=== PATIENT | male | born 1975 | race American Indian/Alaskan Native ===

== ENCOUNTER 2017-03-14 11:27 | Emergency (ER) | payer OTHER ==
[2017-03-14 11:28] VITALS: BMI 29.4
--- NOTE | 2017-03-14 12:53 | C.PDOC ---
History Of Present Illness 41-year-old male, presents to the emergency department with complaints of new onset right flank pain since yesterday. Pain was intermittent, and is now radiating too right-groin. He is currently asymptomatic. No prior Hx of kidney stone, PSH. Denies any other associated symptoms. Patient is /p Motrin dose 600mg, prior to arrival. NEW ONSET R FLANK PAIN SINCE YEST. INTERMIT NOW RADIATION R GROIN. CURRENTLY ASYMPT. NO PRIOR HO KIDNEY STONE, PSH. DENIES OTHER ASSOC SX. 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 Time Seen by Provider: 03/14/17 12:23 Chief Complaint (Nursing): Abdominal Pain History Per: Patient History/Exam Limitations: no limitations Onset/Duration Of Symptoms: Days Current Symptoms Are (Timing): Still Present Severity: Moderate Past Medical History Reviewed: Historical Data, Nursing Documentation, Vital Signs Vital Signs: Last Vital Signs Temp 98.1 F 03/14/17 11:44 Pulse 61 03/14/17 11:44 Resp 18 03/14/17 11:44 BP 122/69 03/14/17 11:44 Pulse Ox 96 03/14/17 13:58 - Medical History PMH: Arthritis, Rheumatoid Arthritis Family History: States: Unknown Family Hx - Social History Hx Alcohol Use: Yes Hx Substance Use: No - Immunization History Hx Tetanus Toxoid Vaccination: No Hx Influenza Vaccination: Yes Hx Pneumococcal Vaccination: No Review Of Systems Except As Marked, All Systems Reviewed And Found Negative. Constitutional: Negative for: Fever, Chills Gastrointestinal: Negative for: Nausea, Vomiting, Abdominal Pain, Diarrhea, Constipation Musculoskeletal: Positive for: Back Pain Skin: Negative for: Rash Neurological: Negative for: Weakness, Numbness, Headache, Dizziness Physical Exam - Physical Exam Appears: Non-toxic, No Acute Distress Skin: Warm, Dry, No Rash Head: Atraumatic, Normacephalic Eye(s): bilateral: Normal Inspection, PERRL Nose: Normal Oral Mucosa: Moist Lips: Normal Appearing Neck: Normal ROM Cardiovascular: Rhythm Regular Respiratory: Normal Breath Sounds, No Accessory Muscle Use Back: No CVA Tenderness Extremity: Normal ROM Neurological/Psych: Oriented x3, Normal Speech ED Course And Treatment - Laboratory Results Result Diagrams: 03/14/17 13:05 03/14/17 13:05 O2 Sat by Pulse Oximetry: 96 Reevaluation Time: 15:13 Reassessment Condition: Improved (ABD NEG. CT FINDINGS REVIEWED. ADVISED DIET MOD, PAIN MEDS, FU PMD/GI) Disposition Counseled Patient/Family Regarding: Studies Performed, Diagnosis, Need For Followup - Disposition Referrals: YOUR,PMD [Other] Disposition: HOME/ ROUTINE Disposition Time: 15:14 Condition: IMPROVED Prescriptions: oxyCODONE/Acetaminophen [Percocet 5/325 mg Tab] 1 tab PO QID PRN #14 tab PRN Reason: Pain Instructions: Cholecystitis (ED) - Clinical Impression Clinical Impression: Abdominal pain, Cholelithiasis - Scribe Statement The provider has reviewed the documentation as recorded by the Scribe Provider Attestation: Soy Green All medical record entries made by the Scribe were at my direction and personally dictated by me. I have reviewed the chart and agree that the record accurately reflects my personal performance of the history, physical exam, medical decision making, and the department course for this patient. I have also personally directed, reviewed, and agree with the discharge instructions and disposition.
[2017-03-14 13:11] LABS: BASO % 0.4 % (0.0-2.0); EOS # 0.1 K/uL (0.0-0.7); HEMATOCRIT 42.9 % (35.0-51.0); LYMPH % 42.7 % (20.0-40.0); MEAN CELL VOLUME 91.9 fL (80.0-94.0); MEAN CORPUSCULAR HGB CONC 32.6 g/dL (33.0-37.0); MEAN PLATELET VOLUME 9.7 fL (7.2-11.7); MONO # 0.7 K/uL (0.0-0.8); MONO % 9.9 % (0.0-10.0); NRBC % 0.1 % (0.0-2.0); RED CELL DISTRIBUTION WIDTH 13.8 % (11.5-14.5); WHITE BLOOD COUNT 7.1 K/uL (4.8-10.8)
[2017-03-14 13:23] LABS: CHLORIDE 96 mmol/L (98-107); POTASSIUM 4.1 mmol/L (3.6-5.2); SODIUM 138 mmol/L (132-148)
[2017-03-14 13:26] LABS: BLOOD UREA NITROGEN 19 mg/dL (9-20); CARBON DIOXIDE 26 mmol/L (22-30); GFR AFRICAN-AMERICAN > 60; GLUCOSE,RANDOM 87 mg/dL (75-110)
[2017-03-14 14:27] LABS: RBC URINE 1 /hpf (0-3); URINE BILIRUBIN NEGATIVE (NEGATIVE); URINE BLOOD NEGATIVE (NEGATIVE); URINE COLOR Yellow (YELLOW); URINE GLUCOSE (UA) NORMAL (Normal); URINE KETONE NEGATIVE (NEGATIVE); URINE LEUKOCYTE ESTERASE NEG Leu/uL (Negative); URINE PROTEIN 2+ mg/dL (NEGATIVE); URINE UROBILINOGEN NORMAL mg/dL (0.2-1.0); WBC URINE 1 /hpf (0-5)
--- NOTE | 2017-03-14 14:53 | CT ---
PROCEDURE: CT Abdomen and Pelvis without intravenous or oral contrast HISTORY: R FLANK PAIN COMPARISON: None. TECHNIQUE: Technique Contiguous axial images of the abdomen and pelvis without intravenous or oral contrast. Radiation dose: Total exam DLP = 870.12 mGy-cm. This CT exam was performed using one or more of the following dose reduction techniques: Automated exposure control, adjustment of the mA and/or kV according to patient size, and/or use of iterative reconstruction technique. FINDINGS: LOWER THORAX: Unremarkable. LIVER: Unremarkable. GALLBLADDER AND BILE DUCTS: Cholelithiasis without CT evidence of acute cholecystitis. PANCREAS: Unremarkable. No ductal dilatation. SPLEEN: Unremarkable. No splenomegaly. ADRENALS: Unremarkable. KIDNEYS AND URETERS: Unremarkable. No hydronephrosis. BLADDER: Unremarkable. No calculus. REPRODUCTIVE: Unremarkable. APPENDIX: Unremarkable. Normal appendix. STOMACH AND BOWEL: Unremarkable. No obstruction. No gross mural thickening. PERITONEUM: Unremarkable. No significant fluid collection. No free air. LYMPH NODES: Unremarkable. No enlarged lymph nodes. VASCULATURE: Unremarkable. No aortic aneurysm. BONES: No acute fracture. OTHER FINDINGS: None . IMPRESSION: Cholelithiasis without CT evidence of acute cholecystitis. No evidence of renal calculus disease, hydronephrosis, hydroureter or bladder abnormality.
[2017-03-14 15:42] VITALS: BP 153/80; PULSE 67; RESP 20; TEMP 98.2; O2SAT 97
== END 2017-03-14 15:41 | disposition home or self-care (01) ==
LOC: C.ER 11:27
DX: K80.20 Calculus of gallbladder without cholecystitis without obstruction (principal); R10.9 Unspecified abdominal pain; M06.9 Rheumatoid arthritis, unspecified